=== PATIENT | female | born 1995 | race Caucasian/White ===

== ENCOUNTER 2020-02-06 11:18 | Emergency (ER) | payer OTHER, SELFPAY | END 2020-02-06 14:55 | disposition left against medical advice (07) | LOC: ED 11:18 | DX: Z53.21 Procedure and treatment not carried out due to patient leaving prior to being seen by health care provider (principal) ==

== ENCOUNTER 2020-02-29 01:46 | Emergency (ER) | payer OTHER, SELFPAY ==
[~2020-02-29] VITALS: Ht 149.9 cm; Wt 71.8 kg
[2020-02-29 01:54] VITALS: Ht 149.9 cm; Wt 71.8 kg
[2020-02-29 02:46] VITALS: BP 137/77
== END 2020-02-29 02:47 | disposition home or self-care (01) ==
LOC: ED 01:46
DX: L23.9 Allergic contact dermatitis, unspecified cause (principal)
CPT/HCPCS: Q0163; Q0177